=== PATIENT | male | born 1970 | race American Indian/Alaskan Native ===

== ENCOUNTER 2017-05-09 00:52 | Emergency (ER) | payer OTHER ==
[2017-05-09 04:05] VITALS: BP 210/106
[2017-05-09 04:36] LABS: Basophils % (Auto) 0.5 % (0.0-1.8); Eosinophils # (Auto) 0.1 K/mm3 (0.0-0.4); Eosinophils % (Auto) 1.6 % (0.0-4.3); Hematocrit 43.6 % (35.5-45.6); Hemoglobin 14.9 gm/dl (11.8-15.2); Lymphocytes # (Auto) 2.8 K/mm3 (1.2-5.4); Mean Corpuscular HGB Conc 34 % (32-34); Mean Corpuscular Hemoglobin 32 pg (28-32); Mean Corpuscular Volume 93 fl (84-94); Monocytes # (Auto) 0.7 K/mm3 (0.0-0.8); Monocytes % (Auto) 8.9 % (0.0-7.3); Platelet Count 199 K/mm3 (140-440); Red Cell Distribution Width 13.8 % (13.2-15.2)
[2017-05-09 04:53] LABS: BUN/Creatinine Ratio 15; Blood Urea Nitrogen 18 mg/dL (9-20); Hemolysis Index 7
--- NOTE | 2017-05-09 06:16 | XRay Report ---
FINAL REPORT EXAM: XR CHEST ROUTINE 2V HISTORY: Shortness of breath TECHNIQUE: PA and lateral chest radiographs PRIORS: 05/07/2015 FINDINGS: No mediastinal shift. Cardiac silhouette is enlarged and increased in size from most recent prior exam. No pneumothorax, effusion, or focal pulmonary opacity. No acute skeletal finding. IMPRESSION: No acute pulmonary finding. Cardiac silhouette is enlarged compared to most recent prior exam. Differential diagnosis includes cardiomegaly and pericardial effusion. Consider echocardiogram for further evaluation.
== END 2017-05-09 07:35 | disposition left against medical advice (07) ==
LOC: ED 00:52
DX: Z53.21 Procedure and treatment not carried out due to patient leaving prior to being seen by health care provider (principal)
CPT/HCPCS: 36415; 71046; 80048; 83880; 85025; 93005; 93010